=== PATIENT | male | born 1995 | race Caucasian/White ===

== ENCOUNTER 2016-08-15 18:17 | Emergency (ER) | payer OTHER ==
[2016-08-15 19:16] VITALS: BP 140/77
[2016-08-15] MEDS ORDERED: Tetan/Diph/Pertus SYR(Tdap)* 0.5 ML SYR(BOOSTRIX) use SYR IM ONE (19:46)
[2016-08-15] MEDS ORDERED: Lidocaine 2% PF * 5 ML VIAL ONE (20:03)
--- NOTE | 2016-08-15 21:29 | UC ---
julio Guerra Timothy, scribed for Gloria Dooley MD on 08/15/16 at 1947 . Upper Extremity HPI - HPI Summary HPI Summary: Mukesh Jacobs is a 21 yo male presenting to [facility] with a left index finger laceration and 1/10 pain at 1750 today. Pt states he had been drinking EtOH earlier today, and was cutting a tomato when the knife slipped.He has not self- medicated. He has no pertinent MHx. He does not recall his last tetanus immunization. He sought medical attention because it has not stopped bleeding. - History of Current Complaint Chief Complaint: UCLaceration Stated Complaint: FINGER LAC Time Seen by Provider: 08/15/16 19:52 Hx Obtained From: Patient ?: No Onset/Duration: Sudden Onset, Lasting Hours, Still Present Severity Initially: Moderate Severity Currently: Moderate Pain Intensity: 1 Pain Scale Used: 0-10 Numeric Location Of Pain: Is Discrete @ - left index finger Aggravating Factor(s): Nothing Alleviating Factor(s): Nothing Associated Signs And Symptoms: Positive: Negative Related History: Dominant Hand Right - Risk Factors Non-Orthopedic Risk Factor: Negative DVT Risk Factors: Negative Septic Arthritis Risk Factor: Negative - Allergies/Home Medications Allergies/Adverse Reactions: Allergies Allergy/AdvReac Type Severity Reaction Status Date / Time Cefuroxime [From Ceftin] Allergy Hives Verified 08/15/16 19:16 Home Medications: Home Medications Elkhorn-3 Fatty Acids [El[place]orn 3] 1 cap PO DAILY 08/15/16 [History Confirmed ] PMH/Surg Hx/FS Hx/Imm Hx Previously Healthy: Yes Endocrine History Of: Denies: Diabetes, Thyroid Disease Cardiovascular History Of: Denies: Cardiac Disorders, Hypertension Respiratory History Of: Denies: COPD, Asthma GI/ History Of: Denies: Ulcer - Surgical History Surgical History: None - Family History Known Family History: Positive: Unknown - adopted at Family History: no cardio vascular issues in family lineage - Social History Occupation: Employed Full-time Alcohol Use: Occasionally Substance Use Type: None Smoking Status (MU): Never Smoked Tobacco - Immunization History Most Recent Tetanus Shot: UNSURE Review of Systems Constitutional: Negative Skin: Other - laceration to left index finger Eyes: Negative ENT: Negative Respiratory: Negative Cardiovascular: Negative Gastrointestinal: Negative Genitourinary: Negative Motor: Negative Neurovascular: Negative Musculoskeletal: Negative Neurological: Negative Psychological: Negative All Other Systems Reviewed And Are Negative: Yes Physical Exam Triage Information Reviewed: Yes Appearance: Well-Appearing, Well-Nourished, Pain Distress - mild, Other: - There is no odor similar to ETOH and pt does not appear intoxicated Vital Signs: Initial Vital Signs Temp 99.1 F 08/15/16 19:13 Pulse 93 08/15/16 19:13 Resp 16 08/15/16 19:13 BP 140/77 08/15/16 19:13 Vital Signs Reviewed: Yes Eyes: Positive: Conjunctiva Clear ENT: Positive: Hearing grossly normal. Negative: Muffled/hoarse voice Neck: Positive: Supple, Nontender Respiratory: Positive: Lungs clear, Normal breath sounds, No respiratory distress Cardiovascular: Positive: RRR, No Murmur, Pulses Normal, Brisk Capillary Refill Musculoskeletal: Positive: Strength Intact, ROM Intact Neurological: Positive: Alert, Muscle Tone Normal Psychological Exam: Normal Skin: Positive: Other - 2cm x 3mm x 2mm left index finger curvolinear laceration on the ventral surface of the DIP Procedures - Procedure Summary Procedure Summary: Time-out occurred at 1956. Pt tolerated procedure well. - Laceration/Wound Repair 1 Location: upper extremity - left index finger Description: Linear Anesthesia: 2.0%, Lido Length, Depth and Shape: 2cm x 3mm x 2mm, curvilinear Betadine Prep?: Yes Irrigated w/ Saline (ccs): 500 Laceration/Wound Explored: clean Closure: Single Layer Debridement: minimal Suture Type: Nylon - 4-0 Number of Sutures: 7 Layer Closure?: Yes Sterile Dressing Applied?: Yes Re-Evaluation - Re-Evaluation First Eval Re-Evaluation Time: 20:05 Change: Unchanged Comment: Time-out will occur, sutures will be applied Upper Extremity Course/Dx - Course Course Of Treatment: Mukesh Jacobs is a 21 yo male presenting to [facility] with a 2cm x 3mm x 2mm left index finger laceration after drinking EtOH. After examination, time-out occurred at 1956, and 7 sutures were applied. He will be discharged with laceration instructions, and instructions to return to urgent care or the emergency department with new or worsening symptoms. - Differential Dx/Diagnosis Differential Diagnosis/HQI/PQRI: Laceration Provider Diagnoses: Tetanus update, left index finger laceration with sutures. Discharge - Discharge Plan Condition: Stable Disposition: HOME Patient Education Materials: Diphtheria/Acellular Pertussis/Tetanus Vaccine ( DTaP) (By injection), Finger Laceration (ED) Referrals: No Primary Care Phys,NOPCP [Medical Doctor] - [facility] [place] [facility] [place]] Additional Instructions: Return to urgent care within 1 week to have your sutures removed. Return to urgent care or the emergency department with any new or recurring symptoms. The documentation as recorded by the julio vigil Timothy accurately reflects the service I personally performed and the decisions made by , Gloria Dooley MD.
== END 2016-08-15 21:16 | disposition home or self-care (01) ==
LOC: UCEAST 18:17
DX: S61.211A Laceration without foreign body of left index finger without damage to nail, initial encounter (principal); W26.0XXA Contact with knife, initial encounter; Y93.G1 Activity, food preparation and clean up; Y92.9 Unspecified place or not applicable; Z23 Encounter for immunization; Z88.1 Allergy status to other antibiotic agents
CPT/HCPCS: 13132; 90715; 99211; G0463

== ENCOUNTER 2016-08-23 07:04 | Emergency (ER) | payer OTHER ==
[2016-08-23 07:30] VITALS: BP 154/68
--- NOTE | 2016-08-23 12:05 | UC ---
Viv Guerra Anna, scribed for Alley Noriega MD on 08/23/16 at 0717 . HPI Wound/Suture Re-check - HPI Summary HPI Summary: Patient is a 21 y/o male coming to [facility] [place] presenting for suture re-check. The patient was seen at [facility] [place] on 08/15/2016 for a laceration to his left index finger that occurred when he was slicing tomatoes. He is able to bend his finger normally, though there are some areas of decreased sensation. His last tetanus shot was that day, 08/15/2016. His PCP is Dr. Carter. - History Of Current Complaint Stated Complaint: STITCH REMOVAL Hx Obtained From: Patient Procedure Type: laceration repair, 08/15/2016 - Allergies/Home Medications Allergies/Adverse Reactions: Allergies Allergy/AdvReac Type Severity Reaction Status Date / Time Cefuroxime [From Ceftin] Allergy Hives Verified 08/15/16 19:16 PMH/Surg Hx/FS Hx/Imm Hx Previously Healthy: Yes Endocrine History Of: Denies: Diabetes, Thyroid Disease Cardiovascular History Of: Denies: Cardiac Disorders, Hypertension Respiratory History Of: Denies: COPD, Asthma GI/ History Of: Denies: Ulcer - Surgical History Surgical History: None - Family History Known Family History: Positive: Unknown - adopted at Family History: no cardio vascular issues in family lineage - Social History Alcohol Use: Occasionally Substance Use Type: None Smoking Status (MU): Never Smoked Tobacco - Immunization History Most Recent Tetanus Shot: 08/15/2016 Review of Systems Constitutional: Negative Skin: Other - Healing laceration on left index finger Eyes: Negative ENT: Negative Respiratory: Negative Cardiovascular: Negative Gastrointestinal: Negative Genitourinary: Negative Motor: Negative Neurovascular: Negative Musculoskeletal: Negative Neurological: Negative Psychological: Negative All Other Systems Reviewed And Are Negative: Yes Physical Exam Triage Information Reviewed: Yes Appearance: Well-Nourished Vital Signs Reviewed: Yes Eye Exam: Normal ENT Exam: Normal Neck exam: Normal - No adenopathy appreciated Respiratory Exam: Normal - No dyspnea, no tachypnea, normal respiratory rate. Cardiovascular Exam: Normal - Heart rate regular, good general skin color, good capillary refill. Musculoskeletal Exam: Normal Musculoskeletal: Positive: Strength Intact Neurological Exam: Normal - Nonfocal, grossly intact Psychological Exam: Normal - Conversing easily and appropriately Skin Exam: Normal - no visible or reported rash, Other - Left index finger with SI sutures in place. Line of demarcation. See COA. Good distal CR. FROM but hesitent 2/2 site of sutures. Course/Dx - Course Course Of Treatment: No new problems in CCC. Considered below differential diagnoses. Sutures not ready for removal today. Some wound margins have begun to necrose but healthy line of demarcation noted. Distal sensation decreased but still present to light touch and pressure. D/w pt. No evidence infection or cellulitis. Reviewed WC instruction. See AVS. F/u in 5 days for SR. Questions answered as posed. - Differential Dx - Laceration/Wound Provider Diagnoses: Wound recheck. Discharge - Discharge Plan Condition: Stable Disposition: HOME Patient Education Materials: Care For Your Stitches (ED) Referrals: Emma ESTEBAN,Randy Oropeza [Primary Care Provider] - Alley Noriega MD [Emergency Provider] - Additional Instructions: Follow up [facility] on 08/28/2016. Seek medical attention for worsening problems in the meantime. Avoid Neosporin repetitive use. No soak. No astringents. Light cover via bacitracin and bandaid. The documentation as recorded by the Viv vigil Anna accurately reflects the service I personally performed and the decisions made by , Alley Noriega MD.
== END 2016-08-23 07:37 | disposition home or self-care (01) ==
LOC: UCEAST 07:04
DX: S61.211D Laceration without foreign body of left index finger without damage to nail, subsequent encounter (principal); W26.0XXD Contact with knife, subsequent encounter; Y92.9 Unspecified place or not applicable; Z88.1 Allergy status to other antibiotic agents
CPT/HCPCS: 99212; G0463

== ENCOUNTER 2016-08-28 07:05 | Emergency (ER) | payer OTHER ==
[2016-08-28 07:13] VITALS: BP 164/88
--- NOTE | 2016-08-28 07:41 | UC ---
Martha Guerra Matthew, scribed for Alley Noriega MD on 08/28/16 at 0713 . HPI Wound/Suture Re-check - HPI Summary HPI Summary: Patient is a 21 y/o male coming to [facility] [place] presenting for suture removal. The patient was seen at [facility] [place] on 08/15/2016 for a laceration to his left index finger that occurred when he was slicing tomatoes. He is able to bend his finger normally, though there are some areas of decreased sensation. His last tetanus shot was that day, 08/15/2016. His PCP is Dr. Carter. - History Of Current Complaint Stated Complaint: WOUND RECHECK Hx Obtained From: Patient Onset/Duration: Still Present Surgical Site: left index finger Procedure Type: suture removal - Allergies/Home Medications Allergies/Adverse Reactions: Allergies Allergy/AdvReac Type Severity Reaction Status Date / Time Cefuroxime [From Ceftin] Allergy Hives Verified 08/15/16 19:16 PMH/Surg Hx/FS Hx/Imm Hx Endocrine History Of: Denies: Diabetes, Thyroid Disease Cardiovascular History Of: Denies: Cardiac Disorders, Hypertension Respiratory History Of: Denies: COPD, Asthma GI/ History Of: Denies: Ulcer - Surgical History Surgical History: None - Family History Known Family History: Positive: None, Unknown - adopted at Family History: no cardio vascular issues in family lineage - Social History Alcohol Use: Occasionally Substance Use Type: None Smoking Status (MU): Never Smoked Tobacco - Immunization History Most Recent Tetanus Shot: 08/15/2016 Review of Systems Constitutional: Negative Skin: Other - healing laceration to the left index finger Eyes: Negative ENT: Negative Respiratory: Negative Cardiovascular: Negative Gastrointestinal: Negative Genitourinary: Negative Motor: Negative Neurovascular: Negative Musculoskeletal: Negative Neurological: Negative Psychological: Negative All Other Systems Reviewed And Are Negative: Yes Physical Exam Triage Information Reviewed: Yes Appearance: Well-Nourished Vital Signs: Initial Vital Signs Temp 96.9 F 08/28/16 07:08 Pulse 114 08/28/16 07:08 Resp 16 08/28/16 07:08 BP 164/88 08/28/16 07:08 Pulse Ox 100 08/28/16 07:08 Vital Signs Reviewed: Yes Eye Exam: Normal ENT Exam: Normal Neck exam: Normal Neck: Positive: Other: - No Adenopathy appreciated Respiratory Exam: Normal - No Dyspnea, No tachypnea, normal respiratory rate Respiratory: Positive: Other: Cardiovascular Exam: Normal Abdominal Exam: Normal Musculoskeletal Exam: Normal Musculoskeletal: Positive: Strength Intact - see below skin Neurological Exam: Normal Psychological Exam: Normal - Conversing easily and appropriately Skin Exam: Other - Left index finger with SI sutures in place. Some discoloration at margin, dry line of demarcation. No infection or cellulitis. See COA. Good distal CR. FROM but hesitent 2/2 site of sutures. Distal sens LT still a little dysesthetic but subjectively improved from last visit. Course/Dx - Course Course Of Treatment: No New Problems in CCC. Considered below differential Dx' s. Sutures removed during course of examination. Tolerated well. Some flaky dark skin bunny at curve of injury. This eventually will flake off, and likely heal from 2/2 intention. Thin bacitracin / bandage placed by myself. I reviewed WC instructions with pt. Avoidance of sun exposure. Return if worse or new problems especially redness / streaking. Questions answered to the best of my ability. - Differential Dx - Laceration/Wound Provider Diagnoses: Suture removal L index finger Discharge - Discharge Plan Condition: Stable Disposition: HOME Referrals: Emma ESTEBAN,Randy Oropeza [Primary Care Provider] - Additional Instructions: Seek medical attention for worsening problems in the meantime. Avoid Neosporin repetitive use. No soak. No astringents. Light cover via bacitracin and bandaid as needed, probably the next week or so. Avoid direct sun exposure indefinitely. Follow up with your primary care physician per routine. The documentation as recorded by the Martha vigil Matthew accurately reflects the service I personally performed and the decisions made by me, Alley Noriega MD.
== END 2016-08-28 07:43 | disposition home or self-care (01) ==
LOC: UCEAST 07:05
DX: Z48.02 Encounter for removal of sutures (principal)
CPT/HCPCS: 99211; G0463

== ENCOUNTER 2017-08-24 07:06 | Emergency (ER) | payer OTHER ==
[2017-08-24 07:18] VITALS: BP 151/86
[2017-08-24] MEDS ORDERED: Fluorescein Sodium TOPICAL* 1 MG TEST OPHTHALMIC ONE (07:23)
--- NOTE | 2017-08-24 07:24 | UC ---
Eye Complaint HPI - HPI Summary HPI Summary: 22 yo male with right eye irritation this AM when he put his contact in Removed contact and is asymptomatic concerned about abrasion no eye pain or photophobia or d/c - History of Current Complaint Chief Complaint: UCEye Stated Complaint: EYE ISSUE Time Seen by Provider: 08/24/17 07:17 Hx Obtained From: Patient Onset/Duration: Sudden Onset, Lasting Minutes Timing: Constant Severity Initially: Moderate Severity Currently: None Pain Intensity: 0 Pain Scale Used: 0-10 Numeric Location of Injury: Conjunctiva Aggravating Factor(s): Contact Lens Alleviating Factor(s): Other - removing contact Associated Signs And Symptoms: Positive: Negative - Allergies/Home Medications Allergies/Adverse Reactions: Allergies Allergy/AdvReac Type Severity Reaction Status Date / Time Cefuroxime [From Ceftin] Allergy Hives Verified 08/24/17 07:18 Home Medications: Home Medications Levocetirizine Dihydrochloride [Xyzal Allergy 24Hr] 5 mg PO DAILY PRN 08/24/17 [ History Confirmed 08/24/17] PMH/Surg Hx/FS Hx/Imm Hx Previously Healthy: Yes Psychological History: Other Other Psychological History: ADD - Surgical History Surgical History: None - Family History Known Family History: Positive: None, Unknown - adopted at Family History: no cardio vascular issues in family lineage - Social History Alcohol Use: Occasionally Substance Use Type: None Smoking Status (MU): Never Smoked Tobacco - Immunization History Most Recent Influenza Vaccination: 2016 Most Recent Tetanus Shot: 08/15/2016 Review of Systems Constitutional: Negative Skin: Negative Eyes: Negative ENT: Negative Respiratory: Negative Cardiovascular: Negative Gastrointestinal: Negative Genitourinary: Negative Motor: Negative Neurovascular: Negative Musculoskeletal: Negative Neurological: Negative Psychological: Negative Is Patient Immunocompromised?: No All Other Systems Reviewed And Are Negative: Yes Physical Exam Triage Information Reviewed: Yes Appearance: Well-Appearing, No Pain Distress, Well-Nourished Vital Signs: Initial Vital Signs Temp 99.8 F 08/24/17 07:13 Pulse 108 08/24/17 07:13 Resp 20 08/24/17 07:13 BP 151/86 08/24/17 07:13 Pulse Ox 100 08/24/17 07:13 Vital Signs Reviewed: Yes Eyes: Positive: Other: - eomi/perrl, conjunctival vessels right eye slighly more prominent than left, no fb , neg flourescein staining ENT: Positive: Hearing grossly normal, Pharynx normal, TMs normal, Uvula midline. Negative: Nasal congestion, Nasal drainage, Tonsillar swelling, Tonsillar exudate, Trismus, Muffled voice, Hoarse voice, Sinus tenderness Neck: Positive: Supple, Nontender, No Lymphadenopathy Respiratory: Positive: Lungs clear, Normal breath sounds, No respiratory distress, No accessory muscle use Cardiovascular: Positive: RRR, No Murmur Musculoskeletal: Positive: ROM Intact, No Edema Neurological: Positive: Alert Psychological Exam: Normal Skin Exam: Normal Eye Complaint Course/Dx - Differential Dx/Diagnosis Provider Diagnoses: right eye irritation of uncertain cause Discharge - Discharge Plan Condition: Stable Disposition: HOME Referrals: [facility] [place] [facility] [place]] Dayne Rocha MD [Medical Doctor] - Additional Instructions: I saw no abrasion or foreign body or ulcer I suggest you try ZADITOR eye drops OTC If symptoms persist you'll need to see a eye doctor Your BP and pulse where a little high Call the Referral Center for help finding an MD
== END 2017-08-24 07:45 | disposition home or self-care (01) ==
LOC: UCEAST 07:06
DX: H57.8 Other specified disorders of eye and adnexa (principal); F98.8 Other specified behavioral and emotional disorders with onset usually occurring in childhood and adolescence; Z88.1 Allergy status to other antibiotic agents
CPT/HCPCS: 99211; A9270-GY; G0463